=== PATIENT | male | born 1970 | race Caucasian/White ===

== ENCOUNTER → 2019-05-30 | Outpatient (CLI) | payer BC ==
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
== END ==
LOC: RAD FS 10:39
PROVIDERS: ATTEND Family Medicine
DX: M47.816 Spondylosis without myelopathy or radiculopathy, lumbar region (principal); M25.78 Osteophyte, vertebrae; M51.16 Intervertebral disc disorders with radiculopathy, lumbar region; Z87.828 Personal history of other (healed) physical injury and trauma
CPT/HCPCS: 72110

== ENCOUNTER → 2019-08-17 | Outpatient (CLI) | payer BC | LOC: RAD 11:34 | PROVIDERS: ATTEND Family Medicine | DX: M54.40 Lumbago with sciatica, unspecified side (principal); Z53.8 Procedure and treatment not carried out for other reasons ==

== ENCOUNTER → 2019-08-17 | Outpatient (CLI) | payer BC ==
[2019-08-17 09:00] LABS: ALANINE AMINOTRANSFERASE 44 U/L (0-55); ALBUMIN 4.2 GM/DL (3.2-4.5); ALKALINE PHOSPHATASE 57 U/L (40-136); BILIRUBIN,TOTAL 0.2 MG/DL (0.1-1.0); BUN/CREATININE RATIO 21; CARBON DIOXIDE 24 MMOL/L (21-32); CHLORIDE 103 MMOL/L (98-107); CREATININE SERUM 0.81 MG/DL (0.60-1.30); GFR ESTIMATED > 60; GLUCOSE 102 MG/DL (70-105); POTASSIUM 4.6 MMOL/L (3.6-5.0); SODIUM 140 MMOL/L (135-145); TOTAL PROTEIN 7.3 GM/DL (6.4-8.2)
[2019-08-17 15:17] LABS: TRIGLYCERIDES 209 MG/DL (<150); VLDL CHOLESTEROL 42 MG/DL (5-40)
[2019-08-17 15:22] LABS: CHOLESTEROL 141 MG/DL (< 200)
[2019-08-17 15:23] LABS: HDL CHOLESTEROL 37 MG/DL (40-60)
== END ==
LOC: LAB FS 08:13
PROVIDERS: ATTEND Family Medicine
DX: E11.9 Type 2 diabetes mellitus without complications (principal)
CPT/HCPCS: 36415; 80053; 80061; 83036

== ENCOUNTER 2019-11-05 07:37 | Emergency (ER) | payer BC ==
[~2019-11-05] VITALS: Ht 180.3 cm; Wt 151.9 kg
--- NOTE | 2019-11-05 07:56 | ED General ---
General Chief Complaint: Dizziness/Syncope Stated Complaint: SYNCOPY Source of Information: Patient Exam Limitations: No Limitations History of Present Illness Date Seen by Provider: Nov 05, 2019 Time Seen by Provider: 07:40 Initial Comments The patient is a pleasant 49-year-old male who presents for evaluation of vertiginous symptoms and fatigue. He states that he woke up around 4:30 this morning to use the restroom and felt like the room was spinning and noticed that he was very tired. He denies any other symptoms and specifically denies chest pain or shortness of breath, headache, ringing in the ears or decreased hearing, loss of taste or smell, cough, fevers or chills, nausea or vomiting, focal weakness or numbness, neck pain, diarrhea, abdominal or back pain, urinary complaints, palpitations or syncope. He is alert and oriented 4, calm, and appears to be in no distress. He denies any past medical or past surgical history. He lives with his who is not having any similar symptoms. He is no longer having the feeling of room-spinning upon arrival to the emergency department. Timing/Duration: 4-6 Hours Severity: Moderate Associated Systoms: No Chest Pain, No Fever/Chills, No Headaches, No Nausea/Vomiting, No Shortness of Air, No Syncope; Weakness Allergies and Home Medications Allergies Coded Allergies: iodine (Verified Allergy, Unknown, 11/05/19) Patient Home Medication List Home Medication List Reviewed: Yes Review of Systems Review of Systems Constitutional: dizziness, malaise, weakness EENTM: no symptoms reported Respiratory: no symptoms reported Cardiovascular: no symptoms reported Gastrointestinal: no symptoms reported Genitourinary: no symptoms reported Musculoskeletal: no symptoms reported Skin: no symptoms reported Psychiatric/Neurological: No Symptoms Reported Hematologic/Lymphatic: No Symptoms Reported Immunological/Allergic: no symptoms reported All Other Systems Reviewed Negative Unless Noted: Yes Past Ykkehbi-Dkkbbp-Hspark Hx Past Med/Social Hx: Reviewed Nursing Past Med/Soc Hx Patient Social History Recent Foreign Travel: No Contact w/Someone Who Travel: No Physical Exam Vital Signs Vital Signs - First Documented 11/05/19 07:40 Temp 36.7 Pulse 70 Resp 14 B/P (MAP) 152/86 (108) Pulse Ox 94 O2 Delivery Room Air Capillary Refill : Height, Weight, BMI Height: '" Weight: lbs. oz. kg; BMI Method: General Appearance: No Apparent Distress, WD/WN, Obese Eyes: Bilateral Eye Normal Inspection, Bilateral Eye PERRL, Bilateral Eye EOMI HEENT: PERRL/EOMI, Pharynx Normal Neck: Full Range of Motion, Normal Inspection, Non Tender, Supple Respiratory: Lungs Clear, Normal Breath Sounds, No Accessory Muscle Use, No Respiratory Distress Cardiovascular: Regular Rate, Rhythm, No Edema, No Murmur, Normal Peripheral Pulses Gastrointestinal: Normal Bowel Sounds, No Pulsatile Mass, Non Tender, Soft Extremity: Normal Capillary Refill, Non Tender, No Calf Tenderness Neurologic/Psychiatric: Alert, Oriented x3, No Motor/Sensory Deficits, Normal Mood/Affect Skin: Normal Color, Warm/Dry Progress/Results/Core Measures Suspected Sepsis SIRS Temperature: Pulse: Respiratory Rate: Laboratory Tests 11/05/19 07:53: White Blood Count 7.8 Blood Pressure / Mean: Laboratory Tests 11/05/19 07:53: Creatinine 0.76, Platelet Count 307, Total Bilirubin 0.2 Results/Orders Lab Results Laboratory Tests Test 11/05/19 07:53 11/05/19 08:24 Range/Units White Blood Count 7.8 4.3-11.0 10^3/uL Red Blood Count 5.11 4.35-5.85 10^6/uL Hemoglobin 14.7 13.3-17.7 G/DL Hematocrit 45 40-54 % Mean Corpuscular Volume 88 80-99 FL Mean Corpuscular Hemoglobin 29 25-34 PG Mean Corpuscular Hemoglobin Concent 33 32-36 G/DL Red Cell Distribution Width 13.2 10.0-14.5 % Platelet Count 307 130-400 10^3/uL Mean Platelet Volume 9.6 7.4-10.4 FL Neutrophils (%) (Auto) 67 42-75 % Lymphocytes (%) (Auto) 20 12-44 % Monocytes (%) (Auto) 10 0-12 % Eosinophils (%) (Auto) 2 0-10 % Basophils (%) (Auto) 1 0-10 % Neutrophils # (Auto) 5.2 1.8-7.8 X 10^3 Lymphocytes # (Auto) 1.6 1.0-4.0 X 10^3 Monocytes # (Auto) 0.8 0.0-1.0 X 10^3 Eosinophils # (Auto) 0.2 0.0-0.3 10^3/uL Basophils # (Auto) 0.0 0.0-0.1 10^3/uL Sodium Level 139 135-145 MMOL/L Potassium Level 4.3 3.6-5.0 MMOL/L Chloride Level 105 98-107 MMOL/L Carbon Dioxide Level 23 21-32 MMOL/L Anion Gap 11 5-14 MMOL/L Blood Urea Nitrogen 17 7-18 MG/DL Creatinine 0.76 0.60-1.30 MG/DL Estimat Glomerular Filtration Rate > 60 BUN/Creatinine Ratio 22 Glucose Level 121 H 70-105 MG/DL Calcium Level 8.9 8.5-10.1 MG/DL Corrected Calcium 8.7 8.5-10.1 MG/DL Total Bilirubin 0.2 0.1-1.0 MG/DL Aspartate Amino Transf (AST/SGOT) 18 5-34 U/L Alanine Aminotransferase (ALT/SGPT) 35 0-55 U/L Alkaline Phosphatase 64 40-136 U/L Troponin I < 0.30 <0.30 NG/ML Pro-B-Type Natriuretic Peptide 37.9 <75.0 PG/ML Total Protein 7.3 6.4-8.2 GM/DL Albumin 4.2 3.2-4.5 GM/DL Urine Color YELLOW Urine Clarity CLEAR Urine pH 7.0 5-9 Urine Specific [place] 1.015 L 1.016-1.022 Urine Protein NEGATIVE NEGATIVE Urine Glucose (UA) NEGATIVE NEGATIVE Urine Ketones NEGATIVE NEGATIVE Urine Nitrite NEGATIVE NEGATIVE Urine Bilirubin NEGATIVE NEGATIVE Urine Urobilinogen 0.2 < = 1.0 MG/DL Urine Leukocyte Esterase NEGATIVE NEGATIVE Urine RBC (Auto) NEGATIVE NEGATIVE Urine RBC NONE /HPF Urine WBC RARE /HPF Urine Squamous Epithelial Cells 0-2 /HPF Urine Crystals NONE /LPF Urine Bacteria NEGATIVE /HPF Urine Casts NONE /LPF Urine Mucus NEGATIVE /LPF Urine Culture Indicated NO My Orders Orders - RENEE GIORDANO DO Cbc With Automated Diff (11/05/19 07:40) Comprehensive Metabolic Panel (11/05/19 07:40) Continuous Ekg Monitoring (11/05/19 07:40) Ekg Tracing (11/05/19 07:40) Ua Culture If Indicated (11/05/19 07:48) Ct Head Wo (11/05/19 07:48) Ed Iv/Invasive Line Start (11/05/19 07:48) Troponin I Fs (11/05/19 07:48) Probnp Fs (11/05/19 07:48) Creatine Kinase (11/05/19 07:48) Creatine Kinase Mb (11/05/19 07:48) Ns Iv 1000 Ml (Sodium Chloride 0.9%) (11/05/19 08:15) Meclizine Tablet (Antivert Tablet) (11/05/19 08:15) Medications Given in ED Current Medications Medications Dose Ordered Sig/Alison Route Start Time Stop Time Status Last Admin Dose Admin Meclizine HCl 25 mg ONCE ONCE PO 11/05/19 08:15 11/05/19 08:17 DC 11/05/19 08:29 25 MG Vital Signs/I&O 11/05/19 07:40 Temp 36.7 Pulse 70 Resp 14 B/P (MAP) 152/86 (108) Pulse Ox 94 O2 Delivery Room Air Capillary Refill : Progress Note : Progress Note @0917 - Patient updated on lab and imaging results which are acutely unremarkable. He states it is feeling better and is asking to be discharged home. Advised the patient to follow-up with his PCP in the next 1-2 days and to return to the emergency Department immediately for new or worsening symptoms. The patient expresses verbal understanding and agreement with the plan and is stable for discharge. ECG Comment @0743 - normal sinus rhythm, rate of 75, normal axis, no acute ischemic findings noted, no STEMI, reviewed and interpreted by myself Diagnostic Imaging Diagonstic Imaging: CT Comments [facility] [place], [place] NAME: RENEE MORSE [facility] REC#: [id number] PT STATUS: REG ER : 1970 PHYSICIAN: RENEE GIORDANO DO ADMIT DATE: 11/05/19/ER FS Draft Date of Exam:11/05/19 CT HEAD WO PROCEDURE: CT head without contrast. TECHNIQUE: Multiple contiguous axial images were obtained through the brain without the use of intravenous contrast. Auto Exposure Controls were utilized during the CT exam to meet ALARA standards for radiation dose reduction. INDICATION: Syncope and vertigo. No prior studies are available for comparison. FINDINGS: The ventricles and sulci are within normal limits. No sulcal effacement or midline shift is identified. No acute intra-axial or extra-axial hemorrhage is detected. Cisterns are patent. The visualized paranasal sinuses are clear. IMPRESSION: No acute intracranial process is identified. Dictated on workstation # [id number] Dict: 11/05/19808 Trans: 11/05/19811 [id number] Interpreted by: HANG COBURN MD Electronically signed by: Departure Impression Primary Impression: Vertigo Additional Impression: Fatigue Disposition: 01 HOME, SELF-CARE Condition: Stable Departure-Patient Inst. Decision time for Depature: 09:21 Referrals: PATSY YANG MD (PCP/Family) Primary Care Physician Patient Instructions: Vertigo (a Type of Dizziness) (DC), Fatigue (DC) Add. Discharge Instructions: Follow-up with your doctor in the next 1-2 days. Return to the emergency department immediately for new or worsening symptoms. Take the prescribed medicine as directed, as needed. Scripts Meclizine HCl (Meclizine HCl) 25 Mg Tablet 25 MG PO Q4H PRN for DIZZINESS for 7 Days, #20 TAB Prov: RENEE GIORDANO DO 11/05/19 Work/School Note: Work Release Form Date Seen in the Emergency Department: Nov 05, 2019 Return to Work: Nov 07, 2019 Restrictions: No Restrictions RENEE GIORDANO DO Nov 05, 2019 07:56
--- NOTE | 2019-11-05 08:12 | Diagnostic Imaging Report ---
PROCEDURE: CT head without contrast. TECHNIQUE: Multiple contiguous axial images were obtained through the brain without the use of intravenous contrast. Auto Exposure Controls were utilized during the CT exam to meet ALARA standards for radiation dose reduction. INDICATION: Syncope and vertigo. No prior studies are available for comparison. FINDINGS: The ventricles and sulci are within normal limits. No sulcal effacement or midline shift is identified. No acute intra-axial or extra-axial hemorrhage is detected. Cisterns are patent. The visualized paranasal sinuses are clear. IMPRESSION: No acute intracranial process is identified. Dictated by: Dictated on workstation # [id number]
[2019-11-05] MEDS ORDERED: NS IV 1000 ML 1,000 ML IV SCH (08:15)
[2019-11-05] MEDS ORDERED: MECLIZINE 25 MG (ANTIVERT) TAB PO ONE (08:15)
[2019-11-05 08:17] LABS: BASOPHILS % (AUTO) 1 % (0-10); EOSINOPHILS % (AUTO) 2 % (0-10); HEMATOCRIT 45 % (40-54); HEMOGLOBIN 14.7 G/DL (13.3-17.7); LYMPHOCYTES % (AUTO) 20 % (12-44); MEAN CORPUSCULAR HEMOGLOBIN 29 PG (25-34); MEAN CORPUSCULAR HGB CONC 33 G/DL (32-36); MEAN CORPUSCULAR VOLUME 88 FL (80-99); MEAN PLATELET VOLUME 9.6 FL (7.4-10.4); MONOCYTES % (AUTO) 10 % (0-12); NEUTROPHILS % (AUTO) 67 % (42-75); PLATELET COUNT 307 10^3/uL (130-400); RED CELL DISTRIBUTION WIDTH 13.2 % (10.0-14.5); WHITE BLOOD COUNT 7.8 10^3/uL (4.3-11.0)
--- OUTSIDE RECORDS SUMMARY | 2019-11-05 08:17 | XMS REPORT | Continuity of Care Document ---
Author Organization Unknown Address Unknown Phone Unavailable Allergies There is no data. Medications There is no data. Problems Date Dx Coded Attending Type Code Diagnosis Diagnosed By 06/01/2019 PATSY YANG MD, Ot M25.78 OSTEOPHYTE, VERTEBRAE 06/01/2019 PATSY YANG MD, Ot M47.816 SPONDYLOSIS W/O MYELOPATHY OR RADICULOPA 06/01/2019 PATSY YANG MD, Ot M51.16 INTERVERTEBRAL DISC DISORDERS W RADICULO 06/01/2019 PATSY YANG MD Ot Z87.828 PERSONAL HISTORY OF OTH (HEALED) PHYSICA 06/07/2019 PATSY YANG MD, Ot M25.78 OSTEOPHYTE, VERTEBRAE 06/07/2019 PATSY YANG MD, Ot M47.816 SPONDYLOSIS W/O MYELOPATHY OR RADICULOPA 06/07/2019 PATSY YANG MD Ot M51.16 INTERVERTEBRAL DISC DISORDERS W RADICULO 06/07/2019 PATSY YANG MD Ot Z87.828 PERSONAL HISTORY OF OTH (HEALED) PHYSICA 06/07/2019 PATSY YANG MD Ot M25.78 OSTEOPHYTE, VERTEBRAE 06/07/2019 PATSY YANG MD Ot M47.816 SPONDYLOSIS W/O MYELOPATHY OR RADICULOPA 06/07/2019 PATSY YANG MD Ot M51.16 INTERVERTEBRAL DISC DISORDERS W RADICULO 06/07/2019 PATSY YANG MD Ot M54.41 LUMBAGO WITH SCIATICA, RIGHT SIDE 06/07/2019 PATSY YANG MD Ot M54.42 LUMBAGO WITH SCIATICA, LEFT SIDE 06/07/2019 PATSY YANG MD Ot Z87.828 PERSONAL HISTORY OF OTH (HEALED) PHYSICA 06/07/2019 PATSY YANG MD Ot M25.78 OSTEOPHYTE, VERTEBRAE 06/07/2019 PATSY YANG MD Ot M47.816 SPONDYLOSIS W/O MYELOPATHY OR RADICULOPA 06/07/2019 PATSY YANG MD Ot M51.16 INTERVERTEBRAL DISC DISORDERS W RADICULO 06/07/2019 PATSY YANG MD Ot M54.41 LUMBAGO WITH SCIATICA, RIGHT SIDE 06/07/2019 PATSY YANG MD Ot M54.42 LUMBAGO WITH SCIATICA, LEFT SIDE 06/07/2019 TREY RODRIGUEZ, PATSY Andrews Ot Z87.828 PERSONAL HISTORY OF OTH (HEALED) PHYSICA 06/20/2019 PATSY YANG MD Ot M25.78 OSTEOPHYTE, VERTEBRAE 06/20/2019 PATSY YANG MD Ot M47.816 SPONDYLOSIS W/O MYELOPATHY OR RADICULOPA 06/20/2019 PATSY YANG MD Ot M51.16 INTERVERTEBRAL DISC DISORDERS W RADICULO 06/20/2019 PATSY YANG MD Ot M54.41 LUMBAGO WITH SCIATICA, RIGHT SIDE 06/20/2019 PATSY YANG MD Ot M54.42 LUMBAGO WITH SCIATICA, LEFT SIDE 06/20/2019 PATSY YANG MD Ot Z87.828 PERSONAL HISTORY OF OTH (HEALED) PHYSICA 08/17/2019 PATSY YANG MD Ot M25.78 OSTEOPHYTE, VERTEBRAE 08/17/2019 PATSY YANG MD Ot M47.816 SPONDYLOSIS W/O MYELOPATHY OR RADICULOPA 08/17/2019 PATSY YANG MD Ot M51.16 INTERVERTEBRAL DISC DISORDERS W RADICULO 08/17/2019 PATSY YANG MD Ot M54.41 LUMBAGO WITH SCIATICA, RIGHT SIDE 08/17/2019 PATSY YANG MD Ot M54.42 LUMBAGO WITH SCIATICA, LEFT SIDE 08/17/2019 PATSY YANG MD Ot Z87.828 PERSONAL HISTORY OF OTH (HEALED) PHYSICA 09/10/2019 PATSY YANG MD Ot M25.78 OSTEOPHYTE, VERTEBRAE 09/10/2019 PATSY YANG MD Ot M47.816 SPONDYLOSIS W/O MYELOPATHY OR RADICULOPA 09/10/2019 PATSY YANG MD Ot M51.16 INTERVERTEBRAL DISC DISORDERS W RADICULO 09/10/2019 PATSY YANG MD Ot M54.41 LUMBAGO WITH SCIATICA, RIGHT SIDE 09/10/2019 PATSY YANG MD Ot M54.42 LUMBAGO WITH SCIATICA, LEFT SIDE 09/10/2019 PATSY YANG MD Ot Z87.828 PERSONAL HISTORY OF OTH (HEALED) PHYSICA 09/10/2019 PATSY YANG MD Ot M54.40 LUMBAGO WITH SCIATICA, UNSPECIFIED SIDE 09/10/2019 PATSY YANG MD Ot Z53 .8 PROCEDURE AND TREATMENT NOT CARRIED OUT 09/10/2019 PATSY YANG MD Ot E11 .9 TYPE 2 DIABETES MELLITUS WITHOUT COMPLIC 09/10/2019 PATSY YANG MD Ot M25.78 OSTEOPHYTE, VERTEBRAE 09/10/2019 PATSY YANG MD Ot M47.816 SPONDYLOSIS W/O MYELOPATHY OR RADICULOPA 09/10/2019 PATSY YANG MD Ot M51.16 INTERVERTEBRAL DISC DISORDERS W RADICULO 09/10/2019 PATSY YANG MD Ot M54.41 LUMBAGO WITH SCIATICA, RIGHT SIDE 09/10/2019 PATSY YANG MD Ot M54.42 LUMBAGO WITH SCIATICA, LEFT SIDE 09/10/2019 PATSY YANG MD Ot Z87.828 PERSONAL HISTORY OF OTH (HEALED) PHYSICA 09/10/2019 PATSY YANG MD Ot M54.40 LUMBAGO WITH SCIATICA, UNSPECIFIED SIDE 09/10/2019 PATSY YANG MD Ot Z53 .8 PROCEDURE AND TREATMENT NOT CARRIED OUT 09/10/2019 PATSY YANG MD Ot E11 .9 TYPE 2 DIABETES MELLITUS WITHOUT COMPLIC 09/10/2019 PATSY YANG MD Ot M25.78 OSTEOPHYTE, VERTEBRAE 09/10/2019 PATSY YANG MD Ot M47.816 SPONDYLOSIS W/O MYELOPATHY OR RADICULOPA 09/10/2019 PATSY YANG MD Ot M51.16 INTERVERTEBRAL DISC DISORDERS W RADICULO 09/10/2019 PATSY YANG MD Ot M54.41 LUMBAGO WITH SCIATICA, RIGHT SIDE 09/10/2019 PASTY YANG MD Ot M54.42 LUMBAGO WITH SCIATICA, LEFT SIDE 09/10/2019 PATSY YANG MD Ot Z87.828 PERSONAL HISTORY OF OTH (HEALED) PHYSICA 09/10/2019 PATSY YANG MD Ot M54.40 LUMBAGO WITH SCIATICA, UNSPECIFIED SIDE 09/10/2019 PATSY YANG MD Ot Z53 .8 PROCEDURE AND TREATMENT NOT CARRIED OUT 09/10/2019 PATSY YANG MD Ot E11 .9 TYPE 2 DIABETES MELLITUS WITHOUT COMPLIC 11/05/2019 PATSY YANG MD, Ot M25.78 OSTEOPHYTE, VERTEBRAE 11/05/2019 PATSY YANG MD Ot M47.816 SPONDYLOSIS W/O MYELOPATHY OR RADICULOPA 11/05/2019 PATSY YANG MD Ot M51.16 INTERVERTEBRAL DISC DISORDERS W RADICULO 11/05/2019 PATSY YANG MD Ot M54.41 LUMBAGO WITH SCIATICA, RIGHT SIDE 11/05/2019 PATSY YANG MD Ot M54.42 LUMBAGO WITH SCIATICA, LEFT SIDE 11/05/2019 PATSY YANG MD Ot Z87.828 PERSONAL HISTORY OF OTH (HEALED) PHYSICA 11/05/2019 PATSY YANG MD Ot M54.40 LUMBAGO WITH SCIATICA, UNSPECIFIED SIDE 11/05/2019 PATSY YANG MD Ot Z53 .8 PROCEDURE AND TREATMENT NOT CARRIED OUT 11/05/2019 PATSY YANG MD Ot E11 .9 TYPE 2 DIABETES MELLITUS WITHOUT COMPLIC Procedures There is no data. Results Test Result Range [facility] - 08/17/18 09:22 GLUCOSE 95 mg/dL 65-99 UREA NITROGEN (BUN) 17 mg/dL 7-25 CREATININE 0.92 mg/dL 0.60-1.35 eGFR NON-AFR. ALBANIAN 97 mL/min/1.73m2 > OR = 60 eGFR 113 mL/min/1.73m2 > OR = 60 BUN/CREATININE RATIO NOT APPLICABLE (calc) 6-22 SODIUM 140 mmol/L 135-146 POTASSIUM 4.6 mmol/L 3.5-5.3 CHLORIDE 107 mmol/L 98-110 CARBON DIOXIDE 24 mmol/L 20-32 CALCIUM 9.3 mg/dL 8.6-10.3 PROTEIN, TOTAL 7.6 g/dL 6.1-8.1 ALBUMIN 4.4 g/dL 3.6-5.1 GLOBULIN 3.2 g/dL (calc) 1.9-3.7 ALBUMIN/GLOBULIN RATIO 1.4 (calc) 1.0-2. 5 BILIRUBIN, TOTAL 0.4 mg/dL 0.2-1.2 ALKALINE PHOSPHATASE 61 U/L 40-115 AST 17 U/L 10-40 ALT 26 U/L 9-46 TSH - 08/17/18 09:22 TSH 1.42 mIU/L 0.40-4.50 Encounters ACCT No. Visit Date/Time Discharge Status Pt. Type Provider Facility Loc./Unit Complaint [id number] 08/17/2018 08:45:00 08/17/2018 23:59: 59 CLS Outpatient PATSY YANG [facility] [id number] 08/17/2018 08:45:00 Document Registration [id number] 08/17/2019 11:34:00 23:59:59 CLS Outpatient PATSY YANG MD [facility] RAD CHRONIC LOW BACK PAIN W ITH SCIATICA [id number] 08/17/2019 08:13:00 23:59:59 CLS Outpatient PATSY YANG MD [facility] LAB FS DIABETES [id number] 05/30/2019 10:39:00 23:59:59 CLS Outpatient PATSY YANG MD [facility] RAD FS M54.41 [id number] 11/05/2019 07:38:[address] Emergency GIULIANA DURAN DO [facility] ER FS SYNCOPY
[2019-11-05 08:25] LABS: EOSINOPHILS # (AUTO) 0.2 10^3/uL (0.0-0.3); LYMPHOCYTES # (AUTO) 1.6 X 10^3 (1.0-4.0); MONOCYTES # (AUTO) 0.8 X 10^3 (0.0-1.0); NEUTROPHILS # (AUTO) 5.2 X 10^3 (1.8-7.8)
[2019-11-05 08:33] LABS: CLARITY,URINE CLEAR; COLOR,URINE YELLOW
[2019-11-05 08:34] LABS: BILIRUBIN,URINE NEGATIVE (NEGATIVE); GLUCOSE, URINE (UA) NEGATIVE (NEGATIVE); KETONES,URINE NEGATIVE (NEGATIVE); NITRITE,URINE NEGATIVE (NEGATIVE); PROTEIN,URINE NEGATIVE (NEGATIVE)
[2019-11-05 08:35] LABS: LEUKOCYTE ESTERASE ,URINE NEGATIVE (NEGATIVE)
[2019-11-05 08:39] LABS: BACTERIA,URINE NEGATIVE /HPF; SQUAMOUS EPITHELIAL CELL,UR 0-2 /HPF; WBC,URINE RARE /HPF
[2019-11-05 08:40] LABS: BUN/CREATININE RATIO 22; CALCIUM 8.9 MG/DL (8.5-10.1); CARBON DIOXIDE 23 MMOL/L (21-32); CHLORIDE 105 MMOL/L (98-107); CREATININE SERUM 0.76 MG/DL (0.60-1.30); GFR ESTIMATED > 60; GLUCOSE 121 MG/DL (70-105); POTASSIUM 4.3 MMOL/L (3.6-5.0); SODIUM 139 MMOL/L (135-145)
[2019-11-05 08:41] LABS: ALANINE AMINOTRANSFERASE 35 U/L (0-55); ALBUMIN 4.2 GM/DL (3.2-4.5); ALKALINE PHOSPHATASE 64 U/L (40-136); BILIRUBIN,TOTAL 0.2 MG/DL (0.1-1.0); TOTAL PROTEIN 7.3 GM/DL (6.4-8.2)
[2019-11-05] MEDS ORDERED: MECL-149 PO (09:35)
[2019-11-05 09:41] VITALS: BP 129/87
[2019-11-05 15:00] LABS: CREATINE KINASE 103 U/L (30-200); CREATINE KINASE MB 1.6 NG/ML (<6.6)
== END 2019-11-05 09:41 | disposition home or self-care (01) ==
LOC: EDUNIT# 07:37 → ER FS 07:38
DX: R42 Dizziness and giddiness (principal); R53.83 Other fatigue; Z88.8 Allergy status to other drugs, medicaments and biological substances
CPT/HCPCS: 36415; 70450; 80053; 81000; 82550; 82553; 83880; 84484; 85025; 93005

== ENCOUNTER → 2020-02-08 | Outpatient (CLI) | payer BC ==
[~2020-02-08] MED LIST: MECL-149 PO
--- NOTE | 2020-02-09 10:23 | NUR ---
Notified he is COVID positive
== END ==
LOC: LAB FS 09:33
PROVIDERS: ATTEND Family Medicine
DX: U07.1 COVID-19 (principal)
CPT/HCPCS: 87635

== ENCOUNTER → 2020-05-12 | Outpatient (CLI) | payer BC ==
[2020-05-12 11:40] LABS: CARBON DIOXIDE 25 MMOL/L (21-32); CHLORIDE 106 MMOL/L (98-107); POTASSIUM 4.6 MMOL/L (3.6-5.0); SODIUM 139 MMOL/L (135-145)
[2020-05-12 11:41] LABS: ALANINE AMINOTRANSFERASE 28 U/L (0-55); ALKALINE PHOSPHATASE 69 U/L (40-136); BILIRUBIN,TOTAL 0.2 MG/DL (0.1-1.0); BUN/CREATININE RATIO 17; CALCIUM 8.8 MG/DL (8.5-10.1); CREATININE SERUM 0.84 MG/DL (0.60-1.30); GFR ESTIMATED > 60; GLUCOSE 101 MG/DL (70-105); TOTAL PROTEIN 7.3 GM/DL (6.4-8.2)
[2020-05-12 15:18] LABS: CHOLESTEROL 159 MG/DL (< 200); HDL CHOLESTEROL 41 MG/DL (40-60); TRIGLYCERIDES 251 MG/DL (<150); VLDL CHOLESTEROL 50 MG/DL (5-40)
== END ==
LOC: LAB FS 09:20
PROVIDERS: ATTEND Family Medicine
DX: Z00.00 Encounter for general adult medical examination without abnormal findings (principal)
CPT/HCPCS: 36415; 80053; 80061; 83036; 84443

== ENCOUNTER 2021-01-18 08:57 | Emergency (ER) | payer BC ==
[~2021-01-18] VITALS: Ht 177 cm; Wt 108.8 kg
[2021-01-18] MEDS ORDERED: morphine INJ 10 MG/ML 1ML (SYR OR VIAL) IVP STA (09:05)
--- NOTE | 2021-01-18 09:07 | ED General ---
General Stated Complaint: LLQ PAIN Source of Information: Patient History of Present Illness Date Seen by Provider: Jan 18, 2021 Time Seen by Provider: 08:55 Initial Comments Patient is a 50-year-old with history of gastric sleeve surgery 1 year ago who presents with persistent left lower quadrant pain with nausea vomiting constipation for 1 week. Pain is described as dull moderate worse with palpation and movement. Is not relieved with position change to rest. No fever chills or sweats. No other acute symptoms or complaints. Timing/Duration: 4-6 Hours Severity: Moderate Modifying Factors: improves with Other Associated Systoms: Other Allergies and Home Medications Allergies Coded Allergies: iodine (Verified Allergy, Unknown, 11/05/19) Patient Home Medication List Home Medication List Reviewed: Yes Meclizine HCl (Meclizine HCl) 25 Mg Tablet, 25 MG PO Q4H PRN for DIZZINESS Prescribed by: RENEE GIORDANO on 11/05/19 0935 Review of Systems Review of Systems Constitutional: see HPI EENTM: see HPI Respiratory: see HPI Cardiovascular: see HPI Gastrointestinal: see HPI Genitourinary: see HPI Musculoskeletal: see HPI Skin: see HPI Psychiatric/Neurological: See HPI Hematologic/Lymphatic: See HPI Immunological/Allergic: see HPI Past Tiffcqy-[id number]-Cybshu Hx Seasonal Allergies Seasonal Allergies: No Past Medical History Surgeries: No Respiratory: No Cardiac: No Neurological: No Genitourinary: No Gastrointestinal: No Musculoskeletal: No Endocrine: No (Takes metformin for weight loss denies diabetes) HEENT: Yes Hearing Impairment: Bilateral Hearing Aide Cancer: No Psychosocial: No Integumentary: No Blood Disorders: No Physical Exam Vital Signs Vital Signs - First Documented 01/18/21 09:00 Temp 35.8 Pulse 55 Resp 12 B/P (MAP) 137/96 (110) Pulse Ox 100 O2 Delivery Room Air Capillary Refill : Height, Weight, BMI Height: '" Weight: lbs. oz. kg; 46.00 BMI Method: General Appearance: Anxious Eyes: Bilateral Eye Normal Inspection, Bilateral Eye PERRL, Bilateral Eye EOMI HEENT: PERRL/EOMI Neck: Full Range of Motion, Normal Inspection Respiratory: Lungs Clear, Normal Breath Sounds Gastrointestinal: Soft, Tenderness (Left lower quadrant pain/tenderness. No rebound rigidity or guarding) Neurologic/Psychiatric: Oriented x3 Focused Exam Sepsis Stage: Ruled Out Progress/Results/Core Measures Suspected Sepsis SIRS Temperature: Pulse: Respiratory Rate: Laboratory Tests 01/18/21 09:04: White Blood Count 10.1 Blood Pressure / Mean: Laboratory Tests 01/18/21 09:04: Creatinine 0.89, Platelet Count 304, Total Bilirubin 0.4 Results/Orders Lab Results Laboratory Tests Test 01/18/21 09:04 01/18/21 09:50 Range/Units White Blood Count 10.1 4.3-11.0 10^3/uL Red Blood Count 5.05 4.30-5.52 10^6/uL Hemoglobin 15.0 13.3-17.7 g/dL Hematocrit 45 40-54 % Mean Corpuscular Volume 89 80-99 fL Mean Corpuscular Hemoglobin 30 25-34 pg Mean Corpuscular Hemoglobin Concent 33 32-36 g/dL Red Cell Distribution Width 13.4 10.0-14.5 % Platelet Count 304 130-400 10^3/uL Mean Platelet Volume 9.1 9.0-12.2 fL Immature Granulocyte % (Auto) 0 % Neutrophils (%) (Auto) 80 H 42-75 % Lymphocytes (%) (Auto) 11 L 12-44 % Monocytes (%) (Auto) 7 0-12 % Eosinophils (%) (Auto) 1 0-10 % Basophils (%) (Auto) 1 0-10 % Neutrophils # (Auto) 8.1 H 1.8-7.8 X 10^3 Lymphocytes # (Auto) 1.2 1.0-4.0 X 10^3 Monocytes # (Auto) 0.7 0.0-1.0 X 10^3 Eosinophils # (Auto) 0.1 0.0-0.3 10^3/uL Basophils # (Auto) 0.1 0.0-0.1 10^3/uL Immature Granulocyte # (Auto) 0.0 0.0-0.1 10^3/uL Sodium Level 142 135-145 MMOL/L Potassium Level 4.0 3.6-5.0 MMOL/L Chloride Level 105 98-107 MMOL/L Carbon Dioxide Level 24 21-32 MMOL/L Anion Gap 13 5-14 MMOL/L Blood Urea Nitrogen 18 7-18 MG/DL Creatinine 0.89 0.60-1.30 MG/DL Estimat Glomerular Filtration Rate 90 BUN/Creatinine Ratio 20 Glucose Level 123 H 70-105 MG/DL Calcium Level 9.6 8.5-10.1 MG/DL Corrected Calcium 9.2 8.5-10.1 MG/DL Total Bilirubin 0.4 0.1-1.0 MG/DL Aspartate Amino Transf (AST/SGOT) 15 5-34 U/L Alanine Aminotransferase (ALT/SGPT) 15 0-55 U/L Alkaline Phosphatase 105 40-136 U/L Total Protein 7.6 6.4-8.2 GM/DL Albumin 4.5 3.2-4.5 GM/DL Urine Color YELLOW Urine Clarity CLEAR Urine pH 7.5 5-9 Urine Specific [place] 1.010 L 1.016-1.022 Urine Protein NEGATIVE NEGATIVE Urine Glucose (UA) NEGATIVE NEGATIVE Urine Ketones NEGATIVE NEGATIVE Urine Nitrite NEGATIVE NEGATIVE Urine Bilirubin NEGATIVE NEGATIVE Urine Urobilinogen 0.2 < = 1.0 MG/DL Urine Leukocyte Esterase NEGATIVE NEGATIVE Urine RBC (Auto) 2+ H NEGATIVE Urine RBC 10-25 H /HPF Urine WBC NONE /HPF Urine Crystals NONE /LPF Urine Bacteria TRACE /HPF Urine Casts NONE /LPF Urine Mucus SMALL H /LPF Urine Culture Indicated NO My Orders Orders - MANPREET FUNK DO Cbc With Automated Diff (01/18/21 09:05) Comprehensive Metabolic Panel (01/18/21 09:05) Ct Abdomen/Pelvis W (01/18/21 09:05) Ns Iv 1000 Ml (Sodium Chloride 0.9%) (01/18/21 09:15) Ondansetron Injection (Zofran Injectio (01/18/21 09:15) Morphine Injection (Morphine Injection (01/18/21 09:05) Urinalysis (01/18/21 09:49) Iohexol Injection (Omnipaque 350 Mg/Ml 1 (01/18/21 10:00) Received Contrast (Hold Metformin- Contr (01/18/21 10:00) Sodium Chloride Flush (Catheter Flush Sy (01/18/21 10:00) Ns (Ivpb) (Sodium Chloride 0.9% Ivpb Bag (01/18/21 10:00) Medications Given in ED Current Medications Medications Dose Ordered Sig/Alison Route Start Time Stop Time Status Last Admin Dose Admin Iohexol 100 ml ONCE ONCE IV 01/18/21 10:00 01/18/21 10:20 DC 01/18/21 09:59 100 ML Ondansetron HCl 4 mg ONCE ONCE IVP 01/18/21 09:15 01/18/21 09:16 DC 01/18/21 09:13 4 MG Sodium Chloride 10 ml NEEDED PRN IV 01/18/21 10:00 01/18/21 09:59 10 ML Sodium Chloride 100 ml ONCE ONCE IV 01/18/21 10:00 01/18/21 10:20 DC 01/18/21 09:59 80 ML Vital Signs/I&O 01/18/21 09:00 Temp 35.8 Pulse 55 Resp 12 B/P (MAP) 137/96 (110) Pulse Ox 100 O2 Delivery Room Air Capillary Refill : Departure Communication (Admissions) CT abdomen pelvis: Punctate distal left ureteral stone Patient's symptoms resolved in the ED. Lab imaging. Recommendations supportive care and PCP follow-up. Return precautions reviewed. Patient verbalizes understanding agreement discharge instructions prior to departure. Impression Primary Impression: Left ureteral stone Disposition: HOME, SELF-CARE Condition: Stable Departure-Patient Inst. Decision time for Depature: 10:54 Referrals: PATSY YANG MD (PCP/Family) Primary Care Physician Patient Instructions: Kidney Stone, Adult ED Add. Discharge Instructions: You were evaluated in the emergency department for left lower quadrant pain. CT was performed and is consistent with kidney stone. Please increase fluids and take newly prescribed medication as directed. Follow-up with your PCP for re evaluation if symptoms persist. Return to the ED if new or worsening symptoms. Scripts Hydrocodone/Acetaminophen (Hydrocodone-Acetamin 5-325 mg) 1 Each Tablet 1 TAB PO Q4H PRN for PAIN-MODERATE (5-7), #10 TAB Prov: MANPREET FUNK DO 01/18/21 Ondansetron (Ondansetron Odt) 4 Mg Tab.rapdis 4 MG PO Q6H PRN for NAUSEA-1ST LINE, #10 TAB Prov: MANPREET FUNK DO 01/18/21 MANPREET FUNK DO Jan 18, 2021 09:07
[2021-01-18 09:14] LABS: HEMATOCRIT 45 % (40-54); MEAN CORPUSCULAR HEMOGLOBIN 30 pg (25-34); MEAN CORPUSCULAR HGB CONC 33 g/dL (32-36); MEAN CORPUSCULAR VOLUME 89 fL (80-99); MEAN PLATELET VOLUME 9.1 fL (9.0-12.2); NEUTROPHILS % (AUTO) 80 % (42-75); PLATELET COUNT 304 10^3/uL (130-400); WHITE BLOOD COUNT 10.1 10^3/uL (4.3-11.0)
[2021-01-18 09:15] LABS: BASOPHILS # (AUTO) 0.1 10^3/uL (0.0-0.1); BASOPHILS % (AUTO) 1 % (0-10); EOSINOPHILS # (AUTO) 0.1 10^3/uL (0.0-0.3); EOSINOPHILS % (AUTO) 1 % (0-10); LYMPHOCYTES # (AUTO) 1.2 X 10^3 (1.0-4.0); LYMPHOCYTES % (AUTO) 11 % (12-44); MONOCYTES # (AUTO) 0.7 X 10^3 (0.0-1.0); MONOCYTES % (AUTO) 7 % (0-12); NEUTROPHILS # (AUTO) 8.1 X 10^3 (1.8-7.8)
[2021-01-18] MEDS ORDERED: ONDANSETRON 4 MG/2 ML (SDV) Z0FRAN IVP ONE (09:15)
[2021-01-18] MEDS ORDERED: NS IV 1000 ML 1,000 ML IV SCH (09:15)
[2021-01-18 09:43] LABS: ALBUMIN 4.5 GM/DL (3.2-4.5); BILIRUBIN,TOTAL 0.4 MG/DL (0.1-1.0); CALCIUM 9.6 MG/DL (8.5-10.1); CREATININE SERUM 0.89 MG/DL (0.60-1.30); TOTAL PROTEIN 7.6 GM/DL (6.4-8.2)
[2021-01-18 09:58] LABS: BACTERIA,URINE TRACE /HPF; BILIRUBIN,URINE NEGATIVE (NEGATIVE); CLARITY,URINE CLEAR; COLOR,URINE YELLOW; GLUCOSE, URINE (UA) NEGATIVE (NEGATIVE); KETONES,URINE NEGATIVE (NEGATIVE); LEUKOCYTE ESTERASE ,URINE NEGATIVE (NEGATIVE); NITRITE,URINE NEGATIVE (NEGATIVE); PH,URINE 7.5 (5-9); PROTEIN,URINE NEGATIVE (NEGATIVE)
[2021-01-18] MEDS ORDERED: CATHETER FLUSH 10 ML SYR IV PRN (10:00)
[2021-01-18] MEDS ORDERED: HOLD METFORMIN - RECEIVED CONTRAST 20 ML VIAL IV SCH (10:00)
[2021-01-18] MEDS ORDERED: IOHEXOL 350 MG/ML 100 ML (OMNIPAQUE 350) VIAL IV ONE (10:00)
[2021-01-18] MEDS ORDERED: NS 100 ML (IVPB) BAG IV ONE (10:00)
--- NOTE | 2021-01-18 10:29 | Diagnostic Imaging Report ---
PROCEDURE: CT abdomen and pelvis with contrast. TECHNIQUE: Multiple contiguous axial images were obtained through the abdomen and pelvis after administration of intravenous contrast. Auto Exposure Controls were utilized during the CT exam to meet ALARA standards for radiation dose reduction. All CT scans use one or more of the following dose optimizing techniques: automated exposure control, MA and/or KvP adjustment based on patient size and exam type or iterative reconstruction. INDICATION: Left lower quadrant pain with nausea. History of gastric sleeve. EXAMINATION: CT abdomen and pelvis with contrast 01/18/2021. FINDINGS: The lung bases appear clear. There is hepatic steatosis. Liver otherwise unremarkable. The gallbladder, spleen, adrenal glands and pancreas unremarkable. There is mild fat stranding about the left kidney. There is mild left hydroureteronephrosis. Within the left aspect of the urinary bladder or at the UVJ there is a punctate hyperdensity consistent with a passing or recently passed stone. The right ureter unremarkable. Right kidney unremarkable. There is no ascites or free air. There are small fat-containing inguinal hernias. Appendix unremarkable. No acute process seen about the loops of bowel. There is no adenopathy. There is no acute osseous abnormality. Minimal loss of height is seen along the superior endplate at L1 likely old. Correlate for any point tenderness. IMPRESSION: 1. Mild left hydroureteronephrosis with minimal fat stranding about the left kidney with a punctate stone at or just past the left UVJ. 2. Hepatic steatosis. 3. Minimal loss of height at L1 likely chronic. Correlate for any tenderness to the region. Dictated by: Dictated on workstation # [id number]
[2021-01-18] MEDS ORDERED: ONDA4TAB11 PO (10:57)
[2021-01-18] MEDS ORDERED: ACHD5005 PO (10:57)
[2021-01-18 11:14] VITALS: BP 113/63
== END 2021-01-18 11:15 | disposition home or self-care (01) ==
LOC: EDUNIT# 08:57 → ER FS 08:58
DX: N13.2 Hydronephrosis with renal and ureteral calculous obstruction (principal)
CPT/HCPCS: 36415; 74177; 80053; 81000; 85025

== ENCOUNTER → 2021-07-09 | Outpatient (CLI) | payer BC ==
[~2021-07-09] MED LIST changes: +ACHD5005 PO; +ONDA4TAB11 PO
[2021-07-09 09:36] LABS: ALBUMIN 4.2 GM/DL (3.2-4.5); BILIRUBIN,TOTAL 0.5 MG/DL (0.1-1.0); CALCIUM 9.1 MG/DL (8.5-10.1); CREATININE SERUM 0.72 MG/DL (0.60-1.30); POTASSIUM 4.3 MMOL/L (3.6-5.0); TOTAL PROTEIN 7.2 GM/DL (6.4-8.2)
[2021-07-09 14:42] LABS: CHOLESTEROL 139 MG/DL (< 200); HDL CHOLESTEROL 45 MG/DL (40-60); TRIGLYCERIDES 62 MG/DL (<150); VLDL CHOLESTEROL 12 MG/DL (5-40)
== END ==
LOC: LAB FS 08:08
PROVIDERS: ATTEND Family Medicine
DX: Z00.00 Encounter for general adult medical examination without abnormal findings (principal)
CPT/HCPCS: 36415; 80053; 80061

== ENCOUNTER → 2021-07-24 | Outpatient (CLI) | payer BC | LOC: LAB FS 09:37 | PROVIDERS: ATTEND Family Medicine | DX: Z00.00 Encounter for general adult medical examination without abnormal findings (principal); M79.641 Pain in right hand; R73.9 Hyperglycemia, unspecified; R60.0 Localized edema | CPT/HCPCS: 36415; 83036 ==